=== PATIENT | female | born 1950 | race Caucasian/White ===

== ENCOUNTER → 2018-04-04 | Outpatient (CLI) | payer MEDICARE, OTHER | LOC: COL.VAS 07:35 | DX: Z01.818 Encounter for other preprocedural examination (principal); I51.9 Heart disease, unspecified ==

== ENCOUNTER 2020-04-14 08:56 | Day surgery (SDC) | payer MEDICARE, OTHER ==
[~2020-04-14] VITALS: Ht 147.3 cm; Wt 86.7 kg
[2020-04-14] VITALS (9 sets, daily range): BP systolic 136–176; BP diastolic 73–91; PULSE 62–71; TEMP 98
[2020-04-14] MEDS ORDERED: TAZTIA180 PO (09:11)
[2020-04-14] MEDS ORDERED: METHOTREXA2.5 MG/TAB PO (09:12)
[2020-04-14] MEDS ORDERED: SYNTHROID0.088 MG/T PO (09:13)
[2020-04-14] MEDS ORDERED: PROTONIX 40MG T40 MG PO (09:14)
[2020-04-14] MEDS ORDERED: FOLIC ACID 11 MG/TA1 PO (09:15)
[2020-04-14] MEDS ORDERED: B-121000 MCG PO (09:15)
[2020-04-14] MEDS ORDERED: ZYRTEC 10MG10 MG PO (09:16)
[2020-04-14] MEDS ORDERED: ZESTRIL 10MG10 MG PO (09:16)
[2020-04-14] MEDS ORDERED: ASPIRIN E.C. 8181 MG PO (09:19)
[2020-04-14] MEDS ORDERED: TOVIAZ8 MG PO (09:19)
[2020-04-14] MEDS ORDERED: CRESTOR5 MG PO (09:20)
[2020-04-14] MEDS ORDERED: NITRO-DUR0.2 MG/PAT TD (09:21)
[2020-04-14] MEDS ORDERED: FLONASEALLERGY NS (09:22)
[2020-04-14] MEDS ORDERED: PROVENTIL0.09 MG/A1 IH (09:22)
[2020-04-14] MEDS ORDERED: VITAMIN C500 MG PO (09:23)
[2020-04-14] MEDS ORDERED: [UNRECOGNIZED DRUG - OTHER] PO (09:24)
[2020-04-14 10:19] LABS: HEMOGLOBIN 10.5 g/dl (12.5-16.0); MEAN CELL VOLUME 84 fl (80.0-100.0); MEAN CORPUSCULAR HEMOGLOBIN 25 pg (27.0-31.0); MEAN CORPUSCULAR HGB CONC 30 g/dl (33.0-37.0); MEAN PLATELET VOLUME 10.2 fl (7.4-10.4); PLATELET COUNT 391 K/mm3 (130-400); RED BLOOD COUNT 4.18 M/mm3 (4.10-5.30); REDCELL DISTRIBUTION WIDTH-CV 16.8 % (11.5-14.5)
[2020-04-14 10:26] LABS: PROTHROMBIN TIME 11.6 SECONDS (9.7-12.8)
[2020-04-14 10:48] LABS: CALCIUM 9.6 mg/dL (8.4-10.2); CREATININE, serum 0.76 (0.52-1.25); POTASSIUM 4.6 mmol/L (3.4-5.0)
--- NOTE | 2020-04-14 11:13 | NUR ---
SEE MERGE DOCUMENTATION FOR MEDICATION ADMINISTRATION AND INTRA/POST PROCEUDRE SEDATION ASSESSMENTS.
--- NOTE | 2020-04-14 11:50 | NUR ---
Transferred back from [facility] [facility] by bed. Report adriana Washington RN. Drowsy but oriented. Denies pain and needs at this time. VSS. Right wrist tBand with 12 cc air CD&I, good pulses and cap refill < 3 secs. Call light within reach .
[2020-04-14 13:43] LABS: PARTIAL THROMBOPLASTIN TIME 34.9 SECONDS (26.0-37.0)
--- NOTE | 2020-04-14 14:05 | NUR ---
INT discontinued intact. Right Tband deflated of 12 cc air and pressure dressing applied. Discharge instructions given. Transferred to private car by kamille
== END 2020-04-14 14:15 | disposition home or self-care (01) ==
LOC: COL.CAR 08:56
PROVIDERS: Internal Medicine Cardiovascular Disease
DX: R06.02 Shortness of breath (principal); R94.39 Abnormal result of other cardiovascular function study; I08.1 Rheumatic disorders of both mitral and tricuspid valves; I10 Essential (primary) hypertension; I45.10 Unspecified right bundle-branch block; I49.1 Atrial premature depolarization; I47.1 Supraventricular tachycardia; E66.9 Obesity, unspecified; M10.9 Gout, unspecified; I25.10 Atherosclerotic heart disease of native coronary artery without angina pectoris; M06.9 Rheumatoid arthritis, unspecified; E78.5 Hyperlipidemia, unspecified; Z87.891 Personal history of nicotine dependence
CPT/HCPCS: J1644; J2250; J3010; Q9967

== ENCOUNTER 2021-01-21 10:01 | Inpatient (IN) | payer MEDICARE, OTHER ==
[~2021-01-21 10:01] MED LIST: ASPIRIN E.C. 8181 MG PO; B-121000 MCG PO; CRESTOR5 MG PO; FLONASEALLERGY NS; FOLIC ACID 11 MG/TA1 PO; METHOTREXA2.5 MG/TAB PO; NITRO-DUR0.2 MG/PAT TD; PROTONIX 40MG T40 MG PO; PROVENTIL0.09 MG/A1 IH; SYNTHROID0.088 MG/T PO; TAZTIA180 PO; TOVIAZ8 MG PO; VITAMIN C500 MG PO; ZESTRIL 10MG10 MG PO; ZYRTEC 10MG10 MG PO; [UNRECOGNIZED DRUG - OTHER] PO
[2021-03-10] VITALS (10 sets, daily range): BP systolic 132–164; BP diastolic 72–93; PULSE 70–90; TEMP 97.5–98.1
[2021-03-10] MEDS ORDERED: PROBIOTIC-MAJOR PO (08:24)
[2021-03-10] MEDS ORDERED: SINGULAIR 110 MG/TAB PO (08:26)
[2021-03-10] MEDS ORDERED: ENBREL50 MG/ML SQ (08:40)
[2021-03-10] MEDS ORDERED: VOLTAREN GEL 1%1 TU TP (08:47)
[2021-03-11] VITALS (8 sets, daily range): BP systolic 135–183; BP diastolic 63–98; PULSE 70–91; TEMP 97.2–97.9
[2021-03-11 07:00] LABS: HEMATOCRIT 37.9 % (37.0-47.0); HEMOGLOBIN 11.7 g/dl (12.5-16.0)
[2021-03-12 03:19] VITALS: BP 136/63; PULSE 76; TEMP 98.4
[2021-03-12 07:33] VITALS: BP 126/50; PULSE 79; TEMP 98.1
[2021-03-12] MEDS ORDERED: ASPI325T6 PO (11:18)
[2021-03-12] MEDS ORDERED: ULTRAM 50MG TAB50 MG PO (11:19)
[2021-03-12] MEDS ORDERED: SENOKOT S 50 MG1 TAB PO (11:20)
[2021-03-12 11:51] VITALS: BP 122/48; PULSE 84; TEMP 99
[2021-03-12 12:08] VITALS: BP 110/58; PULSE 78; TEMP 98
== END 2021-03-12 14:53 | disposition home or self-care (01) | DRG 470 ==
LOC: INPTSU 03-10 06:48 → SURG 03-10 10:15
PROVIDERS: ADMIT Orthopaedic Surgery
PROC: 0SRD0J9 Replacement of Left Knee Joint with Synthetic Substitute, Cemented, Open Approach (ICD-10-PCS; principal; 2021-03-10 10:15)
DX: M17.12 Unilateral primary osteoarthritis, left knee (principal); I48.91 Unspecified atrial fibrillation; M06.9 Rheumatoid arthritis, unspecified; I10 Essential (primary) hypertension; E07.9 Disorder of thyroid, unspecified; Z20.828 Contact with and (suspected) exposure to other viral communicable diseases; E66.9 Obesity, unspecified
CPT/HCPCS: A9284; C1713; C1776; J0690; J2250; J2370; J2405; J2704; J7120